=== PATIENT | female | born 1950 | race Two or more races ===

== ENCOUNTER → 2025-01-16 | Outpatient (CLI) | payer MEDICAID ==
[2025-01-16 10:48] LABS: Urine Bacteria None Seen /hpf (None Seen)
[2025-01-16 10:57] LABS: Basophils # (auto) 0.1 10 ^3/uL (0-0.2); Basophils % (auto) 1.3 % (0.0-2.0); Eosinophils # (auto) 0.3 10 ^3/uL (0-0.8); Eosinophils % (auto) 4.9 % (0.0-7.0); Hematocrit 42.4 % (36.0-46.0); Hemoglobin 14.8 g/dL (12.2-16.2); Lymphocytes % (auto) 30.2 % (10.0-50.0); Mean Corpuscular Hemoglobin 31.2 pg (28.0-32.0); Monocytes # (auto) 0.7 10 ^3/uL (0-1.3); Neutrophils # (auto) 3.5 10 ^3/uL (1.6-8.6); Neutrophils % (auto) 52.6 % (37.0-80.0); Platelet Count (auto) 252 10^3/uL (140-450); Red Blood Cells 4.76 10^6/uL (4.0-5.20); Red Cell Distribution Width 14.9 % (11.8-14.3); White Blood Cell 6.7 10^3/uL (4.4-10.8)
[2025-01-16 11:34] LABS: Alanine Aminotransferase 32 U/L (7-40); Albumin 4.4 g/dL (3.2-4.8); Alkaline Phosphatase 81 U/L (46-116); Anion Gap 8 (5-15); Aspartate Aminotransferase 33 U/L (13-40); BUN/Creatinine Ratio 17.5 (10.0-20.0); Blood Urea Nitrogen 14 mg/dL (9-23); Calcium 9.5 mg/dL (8.7-10.4); Carbon Dioxide 28 mmol/L (20-31); Chloride 105 mmol/L (98-107); Glucose 90 mg/dL (74-106); Potassium 3.7 mmol/L (3.5-5.1); Sodium 141 mmol/L (136-145); Total Protein 8.1 g/dL (5.7-8.2)
[2025-01-16 11:35] LABS: Bilirubin, Total 0.5 mg/dL (0.2-1.0); Cholesterol 184 mg/dL (< 200); HDL Cholesterol 46 mg/dL (40-59)
[2025-01-16 11:37] LABS: LDL Cholesterol 123 mg/dL (< 100); Triglycerides 193 mg/dL (< 150)
[2025-01-16 11:41] LABS: Urine Blood Negative /uL (Negative); Urine Clarity Clear (Clear); Urine Color Yellow (Yellow); Urine Hyaline Cast FEW /lpf (0 - 2); Urine Protein, UAD Negative (Negative); Urine Specific Gravity 1.019 (1.001-1.035); Urine Squamous Epithelial Cell FEW /hpf (<5); Urine Urobilinogen Normal (Negative); Urine WBC 5 /HPF (0-5)
== END | disposition home or self-care (01) ==
LOC: LAB 10:29
PROVIDERS: ATTEND Nurse Practitioner Family
DX: Z11.3 Encounter for screening for infections with a predominantly sexual mode of transmission (principal); Z12.11 Encounter for screening for malignant neoplasm of colon; I10 Essential (primary) hypertension; E11.9 Type 2 diabetes mellitus without complications; E78.5 Hyperlipidemia, unspecified
CPT/HCPCS: 36415; 80053; 80061; 81001; 82306; 83036; 84443; 85025; 86704; 86706; 86708; 86803; 87340

== ENCOUNTER → 2025-02-20 | Outpatient (CLI) | payer MEDICAID ==
--- NOTE | 2025-02-21 03:51 | DVH ---
ULTRASOUND-GUIDED LEFT BREAST BIOPSY: INDICATION: UNSP. LUMP IN LT BREAST UPPER OUTER QUADRANT PROCEDURE: Informed consent was obtained. Risks versus benefits were discussed. The patient understan ds and consents to the procedure. A timeout was conducted to determine the correct patient, biopsy si dedness and correct procedure. Preliminary ultrasound determine location of the LEFT breast mass. The overlying skin was prepped a nd draped in the usual sterile fashion. Local anesthesia was achieved with 1% lidocaine. A small derm atotomy was performed to facilitate passage of a 12-gauge biopsy needle with a 25 mm core length. [facility] core specimens were acquired under sonographic guidance and submitted to the laboratory in forma edita. A biopsy marker clip was inserted at the biopsy site. Post clip mammogram was obtained and demonstrate clip in appropriate position. Hemostasis was achieved with compression, then dressed. The patient tolerated the procedure well without any immediate complications. IMPRESSION: Status post ultrasound-guided needle core biopsy of the LEFT breast.
--- NOTE | 2025-02-21 03:51 | DVH ---
ULTRASOUND-GUIDED LEFT BREAST BIOPSY: INDICATION: UNSP. LUMP IN LT BREAST UPPER OUTER QUADRANT PROCEDURE: Informed consent was obtained. Risks versus benefits were discussed. The patient understan ds and consents to the procedure. A timeout was conducted to determine the correct patient, biopsy si dedness and correct procedure. Preliminary ultrasound determine location of the LEFT breast mass. The overlying skin was prepped a nd draped in the usual sterile fashion. Local anesthesia was achieved with 1% lidocaine. A small derm atotomy was performed to facilitate passage of a 12-gauge biopsy needle with a 25 mm core length. [facility] core specimens were acquired under sonographic guidance and submitted to the laboratory in forma edita. A biopsy marker clip was inserted at the biopsy site. Post clip mammogram was obtained and demonstrate clip in appropriate position. Hemostasis was achieved with compression, then dressed. The patient tolerated the procedure well without any immediate complications. IMPRESSION: Status post ultrasound-guided needle core biopsy of the LEFT breast.
== END | disposition home or self-care (01) ==
LOC: US 02-07 09:23
PROVIDERS: ATTEND Student in an Organized Health Care Education/Training Program
DX: N63.21 Unspecified lump in the left breast, upper outer quadrant (principal); N60.92 Unspecified benign mammary dysplasia of left breast
CPT/HCPCS: 19083; 88305; 88342; A4648; 76642; 76942

== ENCOUNTER 2025-06-28 10:38 | Outpatient (CLI) | payer MEDICAID ==
[2025-06-28 11:14] LABS: Hematocrit 43.7 % (36.0-46.0); Hemoglobin 15.1 g/dL (12.2-16.2); Mean Corpuscular Hemoglobin 30.7 pg (28.0-32.0); Mean Corpuscular Volume 88.9 fL (80.0-100.0); Nucleated Red Blood Cells % 0.0 %
[2025-06-28 11:41] LABS: Albumin 4.4 g/dL (3.2-4.8); Alkaline Phosphatase 78 U/L (46-116); Anion Gap 10 (5-15); BUN/Creatinine Ratio 17.2 (10.0-20.0); Blood Urea Nitrogen 15 mg/dL (9-23); Calcium 9.0 mg/dL (8.7-10.4); Carbon Dioxide 27 mmol/L (20-31); Chloride 107 mmol/L (98-107); Glucose 89 mg/dL (74-106); Potassium 3.8 mmol/L (3.5-5.1); Sodium 144 mmol/L (136-145); Total Protein 7.7 g/dL (5.7-8.2)
[2025-06-28 11:42] LABS: Alanine Aminotransferase 41 U/L (7-40); Bilirubin, Total 0.7 mg/dL (0.2-1.0); Cholesterol 234 mg/dL (< 200); HDL Cholesterol 44 mg/dL (40-59); Triglycerides 193 mg/dL (< 150)
[2025-06-28 12:04] LABS: Microalb/Creat Ratio, Urine 11.0
== END 2025-06-28 17:00 | disposition home or self-care (01) ==
LOC: LAB 10:38
PROVIDERS: ATTEND Nurse Practitioner Family
DX: I10 Essential (primary) hypertension (principal); E11.9 Type 2 diabetes mellitus without complications; E78.5 Hyperlipidemia, unspecified; E55.9 Vitamin D deficiency, unspecified; Z12.11 Encounter for screening for malignant neoplasm of colon
CPT/HCPCS: 36415; 80053; 80061; 82043; 82306; 82570; 82607; 83036; 84443; 85025

== ENCOUNTER 2025-07-03 10:34 | Outpatient (CLI) | payer MEDICAID | END 2025-07-03 17:00 | disposition home or self-care (01) | LOC: LAB 10:34 | PROVIDERS: ATTEND Nurse Practitioner Family | DX: I10 Essential (primary) hypertension (principal); E11.9 Type 2 diabetes mellitus without complications; E78.5 Hyperlipidemia, unspecified; E55.9 Vitamin D deficiency, unspecified; Z12.11 Encounter for screening for malignant neoplasm of colon | CPT/HCPCS: 82274 ==

== ENCOUNTER 2025-09-12 07:48 | Outpatient (CLI) | payer MEDICAID ==
[~2025-09-12] VITALS: Ht 152.4 cm; Wt 71.2 kg
[2025-09-12] MEDS: REGADENOSON 0.4 MG/5 ML SYRG IV ONE ×2 (09:48→09:50)
--- NOTE | 2025-09-17 08:18 | DVHSR ---
APPROVED REPORT Exam: Nuclear Stress Test BMI: 0 Stress Test Details Stress Test: Pharmacologic stress testing performed using 0.4 mg of regadenoson per 5 mL given IV over 10 seconds. HR Resting HR: 67 bpm Max Heart Rate (APMHR): 147.916760 bpm Max HR Achieved: 90 bpm Target HR (85% APMHR): 124.399421 bpm % of APMHR: 61.22 Recovery HR: 77 bpm BP Resting BP: 162/70 mmHg Recovery BP: 139/73 mmHg ECG Resting ECG: Sinus Rhythm Clinical Reason for Termination: Completed protocol Nurse Comments Recieved pt. from [facility]. A/Ox4 on RA. 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 PIV flushes well. Reviewed POC. Pt. verbalized understanding of procedure including risks and side effects, agrees for stress testing. Lexiscan stress test performed per protocol. [employer] [facility] tech administered Cardiolite. Pt. tolerated well. Pt. stable, no change on exam. VS returned to baseline. Transferred to [facility] via wheelchair w/ tech. Stress ECG Conclusion lvef 80% normal perfusion scan NM EXAM: Myocardial Perfusion REST/STRESS Imaging Protocol: Rest Tc-99m/Stress Tc-99m 1 day Resting Data Rest SPECT myocardial perfusion imaging was performed in supine position 45 minutes following the intravenous injection of 9.1 mCi of Tc-99m Sestamibi. Time of rest injection: 08:25 Date: 09/12/2025 Time of rest imagin:10 Date: 09/12/2025 Administration Route: IV Administration Site: Right Hand Pharmacologic Stress Pharmacologic stress test was performed by injecting Regadenoson 0.4 mg IV push followed by the intravenous injection of 30.9 mCi of Tc-99m Sestamibi. Time of stress injection: 09:50 Date: 09/12/2025 Time of stress imagin:50 Date: 09/12/2025 Administration Route: IV Administration Site: Right Hand Gated Stress SPECT was performed 60 minutes after stress injection. The images were gated to evaluate regional wall motion and calculate left ventricular ejection fraction. Stress only was performed in the Supine position. Nuclear Conclusion Nuclear Findings: negative for ischemia lvef 80% normal perfusion scan
== END 2025-09-12 17:00 | disposition home or self-care (01) ==
LOC: XYW 07:48
PROVIDERS: ATTEND Internal Medicine
DX: R07.9 Chest pain, unspecified (principal)
CPT/HCPCS: 78452; 93017; A9500; J2785

== ENCOUNTER 2025-10-23 08:58 | Outpatient (CLI) | payer MEDICAID ==
[2025-10-23 10:20] LABS: Hematocrit 42.4 % (36.0-46.0); Hemoglobin 14.6 g/dL (12.2-16.2); Mean Corpuscular Hemoglobin 30.5 pg (28.0-32.0); Mean Corpuscular Volume 88.6 fL (80.0-100.0); Nucleated Red Blood Cells % 0.1 %
[2025-10-23 10:26] LABS: Urine Protein, UAD Negative (Negative)
[2025-10-23 10:39] LABS: Alkaline Phosphatase 78 U/L (46-116); Anion Gap 10 (5-15); BUN/Creatinine Ratio 19.8 (10.0-20.0); Blood Urea Nitrogen 17 mg/dL (9-23); Calcium 9.5 mg/dL (8.7-10.4); Carbon Dioxide 29 mmol/L (20-31); Chloride 102 mmol/L (98-107); Glucose 93 mg/dL (74-106); Potassium 4.1 mmol/L (3.5-5.1); Sodium 141 mmol/L (136-145); Total Protein 7.9 g/dL (5.7-8.2)
[2025-10-23 10:40] LABS: Albumin 4.0 g/dL (3.2-4.8); Cholesterol 170 mg/dL (< 200)
[2025-10-23 10:41] LABS: Bilirubin, Total 0.5 mg/dL (0.2-1.0); HDL Cholesterol 44 mg/dL (40-59)
[2025-10-23 10:46] LABS: Alanine Aminotransferase 47 U/L (7-40); Microalb/Creat Ratio, Urine 9.0
[2025-10-23 10:56] LABS: Triglycerides 200 mg/dL (< 150)
== END 2025-10-23 17:00 | disposition home or self-care (01) ==
LOC: LAB 08:58
PROVIDERS: ATTEND Nurse Practitioner Family
DX: I10 Essential (primary) hypertension (principal); E78.5 Hyperlipidemia, unspecified; E55.9 Vitamin D deficiency, unspecified
CPT/HCPCS: 36415; 80053; 80061; 81001; 82043; 82306; 82570; 82607; 83036; 84443; 85025

== ENCOUNTER 2025-10-23 09:41 | Outpatient (CLI) | payer MEDICAID | END 2025-10-23 17:00 | disposition home or self-care (01) | LOC: XYW 09:41 | PROVIDERS: ATTEND Internal Medicine | DX: R07.9 Chest pain, unspecified (principal) | CPT/HCPCS: 93306 ==